=== PATIENT | female | born 1970 | race Two or more races ===

== ENCOUNTER 2020-08-14 09:45 | Inpatient (IN) | payer OTHER ==
[~2020-08-14] VITALS: Ht 165.1 cm; Wt 88.0 kg
[2020-08-14] MEDS ORDERED: LIPITOR20 MG PO (12:18)
[2020-08-23] MEDS ORDERED: CODE1TAB37 PO (09:37)
[2020-08-23] MEDS ORDERED: COLACE100 MG PO (09:38)
== END 2020-08-23 11:12 | disposition home or self-care (01) | DRG 743 ==
LOC: EDSTATUS 09:45 → O/R 08-20 08:27 → CIR.AMB 08-20 09:45 → OB/GYN 08-20 09:45 → EDSTATUS 08-20 09:45 → OB/GYN 08-20 15:15
PROVIDERS: ADMIT Obstetrics & Gynecology; ATTEND Obstetrics & Gynecology
PROC: 0UJD4ZZ Inspection of Uterus and Cervix, Percutaneous Endoscopic Approach (ICD-10-PCS; 2020-08-20)
PROC: 0UQF0ZZ Repair Cul-de-sac, Open Approach (ICD-10-PCS; 2020-08-20)
PROC: 0TJB8ZZ Inspection of Bladder, Via Natural or Artificial Opening Endoscopic (ICD-10-PCS; 2020-08-20)
PROC: 0UT90ZZ Resection of Uterus, Open Approach (ICD-10-PCS; principal; 2020-08-20 15:15)
DX: N80.0 Endometriosis of uterus (principal); N72 Inflammatory disease of cervix uteri; D25.1 Intramural leiomyoma of uterus; D25.2 Subserosal leiomyoma of uterus; N81.10 Cystocele, unspecified